=== PATIENT | male | born 1940 | race Caucasian/White ===

== ENCOUNTER 2020-06-09 09:20 | Emergency (ER) | payer MEDICARE, SELFPAY ==
--- NOTE | ~2020-06-09 | XR_ITS ---
XR chest 2V DATE: 06/09/2020 10:16 INDICATION: Dyspnea TECHNIQUE: PA and lateral views COMPARISON: None FINDINGS: Heart size is normal. There is aortic calcification. No hilar or mediastinal enlargement is evident. Bilateral hyperinflation, suggesting COPD. No pulmonary infiltrate or consolidation, pleural effusion or pulmonary vascular congestion or pneumothorax. Diffuse osteopenia. IMPRESSION: Bilateral hyperinflation suggesting COPD Aortic atherosclerosis Diffuse osteopenia Reviewed, dictated and finalized at location A. [facility]
[2020-06-09 09:20] VITALS: BP 183/75; PULSE 101; RESP 28; TEMP 37.1; O2SAT 88
[2020-06-09 09:42] VITALS: BP 150/65; PULSE 98; RESP 22; O2SAT 92
--- NOTE | 2020-06-09 09:46 | ED.SOB ---
HPI - SOB/Dyspnea General Chief Complaint: Shortness of Breath/Dyspnea Stated Complaint: Sob Time Seen by Provider: 06/09/20 09:46 Source: patient and RN notes reviewed Mode of arrival: wheelchair Limitations: no limitations History of Present Illness HPI Narrative: patient states that he has been having increasing dyspnea for the last week. In the last couple of days he gets short of breath just going to the bathroom back to bed. He said he had 1 episode of what he felt was a subjective fever but that is gone away and that was 3 days ago. He had some chills and with the fever and again that is gone away since then. He denies any productive cough. He denies any loss of sense of smell or taste. He said he had some cramping in his belly and that went away. He also complains of some increased urinary frequency. These are symptoms of incomplete emptying, intermittent stream, nocturia and dribbling. MD elicited complaint: shortness of breath Onset (ago): week(s) (1) Timing: intermittent and progressively worsening Severity: moderate Exacerbating factors: lying flat and exertion Relieving factors: upright position Associated symptoms: denies other symptoms Treatment prior to arrival: none Related Data Home oxygen amount: none Home Medications Medication Instructions Recorded Confirmed amlodipine 5 mg PO DAILY 06/09/20 06/09/20 Allergies Allergy/AdvReac Type Severity Reaction Status Date / Time No Known Allergies Allergy Verified 06/09/20 09:41 Review of Systems Review of Systems: All systems reviewed & are unremarkable except as noted in HPI and below Constitutional: Constitutional: Denies chills and Reports fever(s) (Subjective 3 days ago, gone now) Eyes: Eyes: Reports no additional eye complaints ENT: Reports system reviewed and no additional complaints, except as documented Cardiovascular: Cardiovascular: Reports no additional cardiovascular complaints Gastrointestinal: Gastrointestinal: Reports no additional gastrointestinal complaints Genitourinary: Genitourinary: Reports no additional male genitourinary complaints Musculoskeletal: Musculoskeletal: Reports no additional musculoskeletal complaints Integumentary/Breasts: Skin/Breast: Reports system reviewed and no additional complaints, except as docu Neurologic: Reports system reviewed and no additional complaints, except as documented Psychiatric: Psychiatric: Reports no additional psychiatric complaints PMFSH Past Medical History Medical History (Updated 06/09/20 @ 11:24 by Ilir Noble MD) Hypertension Surgical History Surgical History (Updated 06/09/20 @ 10:17 by Ilir Noble MD) History of carpal tunnel release Social History Social History (Updated 06/09/20 @ 10:17 by Ilir Noble MD) Smoking packs per day: 1 Smoking cigarettes per day: 20.0 Years smoked: 65 Smoking pack-years: 65.00 Smoking status: Current every day smoker Tobacco type: cigarettes Alcohol intake: current Alcohol use details: occasional Substance use: never Exam Const: General: healthy appearing, no acute distress and alert Nutritional Appearance: well nourished and obese centrally obese Orientation/consciousness: patient oriented x3 Limitations: no limitations HENMT: Head: normal to inspection Ears: external ears normal General nose exam: Normal external nose present Face and sinus: normal facial exam Mouth: Yes lip normal and Yes moist mucous membranes Eyes: Conjunctivae: conjunctivae normal Pupils: Equal, round and reactive pupils present EOM: EOMs intact bilaterally Neck: Neck: normal visual inspection Resp: Effort & Inspection: normal respiratory effort, not labored, no retractions and tachypneic Auscultation: crackles bilateral at the base Cardio: Rate: regular rate Rhythm: abnormal rhythm irregularly irregular GI: GI Palp: Yes Soft to palpation and No Tenderness to palpation present (GI) Auscultation: norm
--- NOTE | 2020-06-09 09:58 | ECG_ITS ---
Measurements Intervals [place] Rate: 93 P: NC: 0 QRS: 46 QRSD: 89 T: 32 QT: 355 QTc: 444 Interpretive Statements SINUS RHYTHM ATRIAL AND VENTRICULAR PREMATURE COMPLEXES BASELINE ARTIFACT- II, III, AVF, V3, V6 BORDERLINE ECG Electronically Signed On 06-11-2020 7:09:02 ASSISTANT AUDITOR by Benito Godwin D.O.
[2020-06-09 10:24] LABS: Basophils Absolute Auto 0.07 K/mm3 (0.00-0.10); Basophils Percent Auto 0.6 % (0.0-1.0); Hematocrit 40.7 % (37.0-46.0); Hemoglobin 13.1 g/dL (12.4-15.3); Immature Granulocyte Absolute 0.08 K/mm3 (0.00-0.00); Immature Granulocyte Percent A 0.7 % (0.0-0.0); Lymphocytes Absolute Auto 1.35 K/mm3 (1.10-4.50); Lymphocytes Percent Auto 11.8 % (18.0-42.0); Mean Corpuscular HGB Conc 32.2 g/dL (32.0-36.0); Mean Corpuscular Hemoglobin 30.3 pg (27.0-31.0); Monocytes Percent Auto 7.9 % (2.0-11.0); Platelet Count Result 397 K/mm3 (150-420); Red Blood Count 4.33 M/mm3 (4.70-6.10); Red Cell Distribution Width 12.9 % (11.6-14.4); White Blood Count 11.4 K/mm3 (4.8-10.8)
[2020-06-09 10:27] LABS: Add Urine Microscopic? YES; Appearance Urine Clear (Clear); Bilirubin Urine Negative (Negative); Blood Urine Negative (Negative); Color Urine Yellow (Yellow); Glucose Urine UA Negative (Negative); Ketones Urine Negative (Negative); Leukocyte Esterase Ur Negative LEU/UL (Negative); Nitrate Urine Negative (Negative); Protein Urine Trace (Negative)
[2020-06-09 10:28] VITALS: BP 138/89; PULSE 96; RESP 22; O2SAT 95
[2020-06-09 10:32] LABS: Bacteria Urine Trace /hpf; Mucus Urine Few /lpf; RBC Urine None seen /hpf (0-2); Squamous Epithelial Cell Urine None seen /hpf (Few); WBC Urine None seen /hpf (0-3)
[2020-06-09 10:35] LABS: INR 1.1; Prothrombin Time 11.7 Seconds (9.50-12.10)
[2020-06-09 10:36] LABS: Alanine Aminotransferase 16 U/L (16-63); Albumin Level 2.9 g/dL (3.4-5.0); Alkaline Phosphatase 68 U/L (46-116); Anion Gap 8 mmol/L (8-16); Aspartate Amino Transferase 18 U/L (15-37); Bilirubin,Total 0.5 mg/dL (0.00-1.00); Blood Urea Nitrogen 12 mg/dL (7-18); Calcium 9.1 mg/dL (8.5-10.1); Carbon Dioxide 30 mmol/L (21-32); Chloride 100 mmol/L (98-108); Estimated CRCL calculation 48 ml/min; Estimated Glomerular Filt Rate > 60; Glucose 106 mg/dL (70-99); Magnesium 1.9 mg/dL (1.8-2.4); Osmolality Calculated 285 mOsm/kg (285-295); Potassium 4.7 mmol/L (3.5-5.1); Sodium 138 mmol/L (136-145); Total Protein 7.9 g/dL (6.4-8.2)
[2020-06-09 10:37] LABS: CRP 14.4 mg/dL (0.0-0.9)
[2020-06-09 10:38] LABS: BNP 398 pg/mL (0-100)
[2020-06-09] MEDS: ALBUTEROL SULFATE (*SP) INHALER 4 PUFF INHALATION (11:01)
--- NOTE | 2020-06-09 11:20 | PC.NURSE ---
Pt declines admission to the hospital
[2020-06-09] MEDS: methylPREDNISolone SOD SUCC 125 MG VIAL IM (11:25)
[2020-06-09 11:40] VITALS: BP 163/81; PULSE 98; RESP 20; O2SAT 95
== END 2020-06-09 11:42 | disposition home or self-care (01) ==
PROVIDERS: Emergency Provider Emergency Medicine; PCP Physician Assistant
DX: J44.1 Chronic obstructive pulmonary disease with (acute) exacerbation (principal); I50.20 Unspecified systolic (congestive) heart failure; I48.0 Paroxysmal atrial fibrillation; I11.0 Hypertensive heart disease with heart failure
CPT/HCPCS: 36415; 71046; 80053; 81001; 83735; 83880; 85025; 85610; 86140; 93005; 96372; 99284; A9270; J2930